=== PATIENT | female | born 1990 | race Two or more races ===

== ENCOUNTER 2022-05-06 15:49 | Emergency (ER) | payer MEDICAID ==
[~2022-05-06] VITALS: Ht 165.1 cm; Wt 67.5 kg
[~2022-05-06 15:49] MED LIST: ERGO1250; FERR325T23 MT; ZINC100T8 PO
[2022-05-06 16:08] VITALS: BP 118/75
[2022-05-06 18:54] LABS: EOSINOPHILS % 1.7 % (0.0-5.0); HEMATOCRIT. 37.8 % (36.0-48.0); LYMPHOCYTES % 39.9 % (20.0-50.0); MEAN CORPUSCULAR HEMOGLOBIN 25.6 pg (28.0-32.0); MEAN CORPUSCULAR VOLUME 80.8 fL (81.0-99.0); MEAN PLATELET VOLUME 9.8 fl (7.4-10.4); MONOCYTES % 12.4 % (2.0-8.0); PLATELET 251 x1000/uL (130-400); RED BLOOD CELL COUNT 4.68 mill/uL (4.2-5.4)
[2022-05-06 19:01] LABS: CHLORIDE 104 mEq/L (98-107)
[2022-05-06 19:31] LABS: HCG SCREEN NEGATIVE
== END 2022-05-06 19:55 | disposition home or self-care (01) ==
LOC: ER 15:49
DX: R07.89 Other chest pain (principal); R51.9 Headache, unspecified; R94.31 Abnormal electrocardiogram [ECG] [EKG]; Z95.0 Presence of cardiac pacemaker
CPT/HCPCS: 36415; 71045; 80053; 83880; 84484; 84703; 85025; 93005; 99285

== ENCOUNTER 2022-06-18 09:33 | Emergency (ER) | payer MEDICAID ==
[~2022-06-18] VITALS: Ht 165.1 cm; Wt 68.0 kg
[2022-06-18 09:36] VITALS: BP 148/92
[2022-06-18] MEDS ORDERED: CYCLOBENZAPRINE 10MG TABLET PO ONE (11:45)
[2022-06-18 12:01] LABS: BASOPHILS % 1.5 % (0.0-2.0); EOSINOPHILS % 2.5 % (0.0-5.0); HEMATOCRIT. 38.4 % (36.0-48.0); HEMOGLOBIN. 12.3 g/dL (12.0-16.0); LYMPHOCYTES % 47.1 % (20.0-50.0); MEAN CORPUSCULAR HEMOGLOBIN 26.2 pg (28.0-32.0); MEAN PLATELET VOLUME 9.2 fl (7.4-10.4); MONOCYTES % 14.3 % (2.0-8.0); NEUTROPHILS % 34.6 % (40.0-76.0); PLATELET 279 x1000/uL (130-400); RED BLOOD CELL COUNT 4.69 mill/uL (4.2-5.4); RED CELL DISTRIBUTION WIDTH 15.6 % (11.6-14.6)
[2022-06-18 12:09] LABS: CHLORIDE 106 mEq/L (98-107)
[2022-06-18] MEDS ORDERED: NAPR-1176 MT (13:08)
== END 2022-06-18 13:34 | disposition home or self-care (01) ==
LOC: ER 09:33
DX: R25.2 Cramp and spasm (principal)
CPT/HCPCS: 36415; 80048; 81025; 85025; 93970; 99284

== ENCOUNTER 2022-08-23 21:14 | Emergency (ER) | payer MEDICAID ==
[~2022-08-23] VITALS: Ht 167.6 cm; Wt 65.0 kg
[~2022-08-23 21:14] MED LIST changes: +NAPR-1176 MT
[2022-08-23] MEDS ORDERED: IBUPROFEN 600MG TABLET PO STA (21:19)
[2022-08-23 21:42] LABS: BASOPHILS % 1.9 % (0.0-2.0); EOSINOPHILS % 3.9 % (0.0-5.0); HEMOGLOBIN. 10.6 g/dL (12.0-16.0); LYMPHOCYTES % 55.5 % (20.0-50.0); MEAN CORPUSCULAR HEMOGLOBIN 25.3 pg (28.0-32.0); MEAN CORPUSCULAR VOLUME 80.9 fL (81.0-99.0); MONOCYTES % 13.3 % (2.0-8.0); NEUTROPHILS % 25.4 % (40.0-76.0); PLATELET 344 x1000/uL (130-400); RED CELL DISTRIBUTION WIDTH 15.8 % (11.6-14.6)
[2022-08-23 21:59] LABS: CHLORIDE 110 mEq/L (98-107)
[2022-08-23 22:03] VITALS: BP 142/81
[2022-08-24] MEDS ORDERED: IBUP-2029 MT (00:22)
== END 2022-08-24 00:30 | disposition home or self-care (01) ==
LOC: ER 21:14
DX: R07.89 Other chest pain (principal); D64.9 Anemia, unspecified; F41.9 Anxiety disorder, unspecified
CPT/HCPCS: 36415; 71045; 80053; 81025; 84484; 85025; 93005; 99285

== ENCOUNTER 2022-09-30 12:51 | Emergency (ER) | payer MEDICAID ==
[~2022-09-30] VITALS: Ht 167.6 cm; Wt 75.0 kg
[~2022-09-30 12:51] MED LIST changes: +IBUP-2029 MT
[2022-09-30 12:53] VITALS: TEMP 98.3; O2SAT 100
[2022-09-30] MEDS ORDERED: NITROGLYCERIN 0.4MG TABLET SL SL PRN (14:00)
[2022-09-30] MEDS ORDERED: ASPIRIN 81MG TABLET PO ONE (14:00)
[2022-09-30 14:21] LABS: BASOPHILS % 2.4 % (0.0-2.0); EOSINOPHILS % 1.8 % (0.0-5.0); HEMOGLOBIN. 12.6 g/dL (12.0-16.0); LYMPHOCYTES % 37.1 % (20.0-50.0); MEAN CORPUSCULAR HEMOGLOBIN 26.3 pg (28.0-32.0); MEAN CORPUSCULAR VOLUME 81.2 fL (81.0-99.0); MONOCYTES % 11.3 % (2.0-8.0); NEUTROPHILS % 47.4 % (40.0-76.0); PLATELET 232 x1000/uL (130-400); RED CELL DISTRIBUTION WIDTH 17.7 % (11.6-14.6)
[2022-09-30 14:51] LABS: CHLORIDE 108 mEq/L (98-107)
[2022-09-30 15:25] LABS: HCG SCREEN NEGATIVE
[2022-09-30 15:40] VITALS: BP 109/74; PULSE 62; RESP 17
== END 2022-09-30 16:20 | disposition home or self-care (01) ==
LOC: ER 12:51
DX: R07.89 Other chest pain (principal); Z91.013 Allergy to seafood; Z98.890 Other specified postprocedural states
CPT/HCPCS: 36415; 71045; 80053; 83880; 84443; 84484; 84703; 85025; 85379; 93005; 99285; Z7610

== ENCOUNTER 2023-11-10 09:32 | Emergency (ER) | payer MEDICAID, OTHER ==
[~2023-11-10] VITALS: Ht 162.6 cm; Wt 77.1 kg
[~2023-11-10 09:32] MED LIST changes: +ESOM20CA37 MT
[2023-11-10 09:38] VITALS: O2SAT 100
[2023-11-10 10:14] LABS: HEMATOCRIT. 40.1 % (36.0-48.0); HEMOGLOBIN. 12.7 g/dL (12.0-16.0); MEAN CORPUSCULAR HEMOGLOBIN 26.8 pg (28.0-32.0); MEAN CORPUSCULAR HGB CONC 31.7 g/dL (31.0-37.0); MEAN CORPUSCULAR VOLUME 84.5 fL (81.0-99.0); MEAN PLATELET VOLUME 9.6 fl (7.4-10.4); PLATELET 259 x1000/uL (130-400); RED BLOOD CELL COUNT 4.75 mill/uL (4.2-5.4); RED CELL DISTRIBUTION WIDTH 17.1 % (11.6-14.6); WHITE BLOOD COUNT 3.5 x1000/uL (4.5-11.0)
[2023-11-10] MEDS ORDERED: MECLIZINE 25MG TABLET PO ONE (10:15)
[2023-11-10 10:17] LABS: DIFFERENTIAL COMMENT 1
[2023-11-10 10:25] LABS: CHLORIDE 104 mEq/L (98-107); POTASSIUM 3.8 mEq/L (3.5-5.1); SODIUM 138 mEq/L (136-145)
[2023-11-10 10:26] LABS: CLARITY URINE CLEAR (CLEAR); COLOR URINE YELLOW (YELLOW); GLUCOSE URINE NEGATIVE (NEGATIVE); KETONES URINE NEGATIVE (NEGATIVE); LEUKOCYTE ESTERASE URINE NEGATIVE (NEGATIVE); NITRITE URINE NEGATIVE (NEGATIVE); OCCULT BLOOD URINE NEGATIVE (NEGATIVE); PROTEIN URINE NEGATIVE (NEGATIVE); SPECIFIC GRAVITY URINE 1.016 (1.005-1.030); UROBILINOGEN URINE 0.2 E.U./dL (0.2-1.0)
[2023-11-10 10:26] LABS: CALCIUM 9.3 mg/dL (8.7-10.4); CARBON DIOXIDE 28 mEq/L (21-32)
[2023-11-10 10:31] LABS: CREATININE 1.1 mg/dL (0.6-1.0); GLUCOSE 85 mg/dL (70-105); UREA NITROGEN BLOOD 9 mg/dL (9-23)
[2023-11-10 10:33] LABS: HCG SCREEN NEGATIVE
[2023-11-10 10:35] LABS: TROPONIN I HIGH SENSITIVITY < 4 ng/L (3.0-34)
[2023-11-10 11:16] LABS: ANISOCYTOSIS 1+; PLATELET ESTIMATE NORMAL
[2023-11-10] MEDS: MECLIZINE 12.5MG TABLET PO NR (11:21)
[2023-11-10] MEDS ORDERED: MECL-299 MT (11:38)
[2023-11-10 11:42] VITALS: BP 112/73; PULSE 60; RESP 16; TEMP 98.1
== END 2023-11-10 12:14 | disposition home or self-care (01) ==
LOC: ER 09:40
DX: R42 Dizziness and giddiness (principal); F41.9 Anxiety disorder, unspecified; D64.9 Anemia, unspecified; Z98.890 Other specified postprocedural states; Z91.013 Allergy to seafood
CPT/HCPCS: 99284; 70450; 80048; 81003; 81025; 84703; 85025; 84484; 36415; 93005; J8597